=== PATIENT | male | born 1955 | race Caucasian/White ===

== ENCOUNTER 2024-11-29 08:40 | Outpatient (CLI) | payer MEDICARE, MEDICAID ==
--- NOTE | 2024-11-29 14:07 | RADIOLOGY REPORT ---
CT Chest without intravenous contrast INDICATION: NICOTINE DEPENDENCE,CIGARETTES TECHNIQUE: Multidetector spiral CT of the chest was performed from the lung apices to the upper abdom en utilizing axial images. Coronal and sagittal multiplanar reformats were performed. Radiation Dose : 1. Chest: CTDI volume is 2.8 mGy. Dose-length product is 110.2 mGy*cm The dose indicators for CT are the volume Computed Tomography (CT) Dose Index (CTDIvol) and the Dose Length Product (DLP), and are measured in units of mGy and mGy-cm, respectively. These indicators are not patient dose, but values generated from the CT scanner acquisition factors. The report includes radiation exposure data for exposures received during this examination. Comparison: None Findings: Lower neck: Unremarkable thyroid. Lungs: There is centrilobular and paraseptal emphysema. There is a noncalcified nodule in the anteri or right upper lobe measuring 4 mm (series 2, image 55). There is a noncalcified nodule in the centra l right upper lobe measuring 1.6 x 1.7 cm (series 2, image 101). There is a noncalcified nodule in th e posterior medial right lower lobe measuring 4 mm (series 2, image 122). There is a noncalcified nod ule in the lateral left lower lobe measuring 5 mm (series 2, image 219). Central airways: Patent. Pleura: No pleural effusions. No pneumothorax Heart/Vascular Structures: The heart is normal in size. No pericardial effusion. There are coronar y artery calcifications. Normal caliber thoracic aorta. The main pulmonary artery is normal in maria esther bimal. Lymph Nodes: No adenopathy Musculoskeletal: There is an age-indeterminate T4, T11 and T12 vertebral body compression deformities . No significant spinal or neural foraminal stenosis.. Body wall: Unremarkable Upper abdomen: Unremarkable. IMPRESSION: 1. Multiple lung nodules. The largest is in the central right upper lobe measuring 1.7 cm. In a kaitlynn ent with risk factors for cancer, this is concerning for malignancy. PET-CT and/or tissue sampling i s recommended for further evaluation. 2. Coronary artery calcifications. Lung-RADS: Lung rads 4B. Category thoracic surgery surgery: Recommendation: PET-CT and/or tissue sampling recommended [email or web address]
== END 2024-11-29 23:59 | disposition home or self-care (01) ==
LOC: RAD 08:40
PROVIDERS: ATTEND Nurse Practitioner Occupational Health
DX: Z12.2 Encounter for screening for malignant neoplasm of respiratory organs (principal); J43.2 Centrilobular emphysema; R91.8 Other nonspecific abnormal finding of lung field; I25.10 Atherosclerotic heart disease of native coronary artery without angina pectoris; F17.210 Nicotine dependence, cigarettes, uncomplicated
CPT/HCPCS: 71271